=== PATIENT | female | born 1995 | race Two or more races ===

== ENCOUNTER 2018-08-25 16:37 | Emergency (ER) | payer SELFPAY ==
[~2018-08-25] VITALS: Ht 157.5 cm; Wt 45.3 kg
[~2018-08-25 16:37] MED LIST: BIRTHCONTROL
[2018-08-25 16:41] VITALS: BP 126/76
== END 2018-08-25 17:49 | disposition home or self-care (01) ==
LOC: ED 17:43
DX: M25.511 Pain in right shoulder (principal); M54.6 Pain in thoracic spine; Y04.8XXA Assault by other bodily force, initial encounter
CPT/HCPCS: 99283

== ENCOUNTER 2018-10-07 15:10 | Emergency (ER) | payer SELFPAY ==
[~2018-10-07] VITALS: Ht 157.5 cm; Wt 45.9 kg
[2018-10-07 16:30] LABS: HCG UR SG 1.025 (1.003-1.030); MICROSCOPIC INDICATED
[2018-10-07 16:31] LABS: CULTURE INDICATED? YES
[2018-10-07 17:57] VITALS: BP 117/69
== END 2018-10-07 17:57 | disposition home or self-care (01) ==
LOC: ED 17:15
DX: N30.00 Acute cystitis without hematuria (principal)
CPT/HCPCS: 81001; 81025; 87077; 87086; 87186; 99283

== ENCOUNTER 2019-04-21 16:06 | Emergency (ER) | payer MEDICAID ==
[~2019-04-21] VITALS: Ht 157.5 cm; Wt 48.2 kg
--- NOTE | 2019-04-21 16:40 | NUR ---
PT HERE BECAUSE SHE SAYS SHE IS WORRIED SHE HAS UTI. SHE STATES SHE ALSO HAS LLQ ABDOMINAL PAIN. STATES PAIN IS 4/10 AT THIS TIME. PT HAS PROVIDED URINE SAMPLE. LAB AT BEDSIDE. [place] WAS HERE TO UDATE PT ON POC. PT RESTING ON GURNEY. VSS. NADN. CALL LIGHT IN REACH.
[2019-04-21 16:58] LABS: MICROSCOPIC INDICATED
[2019-04-21 17:00] LABS: BASOPHILS # (AUTO) 0.03 x10^3/uL (0-0.1); BASOPHILS % (AUTO) 1 % (0-1); EOSINOPHILS # (AUTO) 0.07 x10^3/uL (0-0.4); EOSINOPHILS % (AUTO) 1 % (1-7); LYMPHOCYTES # (AUTO) 2.63 x10^3/uL (1-3.4); LYMPHOCYTES % (AUTO) 38 % (22-44); MEAN CORPUSCULAR HEMOGLOBIN 30.9 pg (27.0-34.8); MEAN CORPUSCULAR HGB CONC 33.4 g/dL (32.4-35.8); MEAN CORPUSCULAR VOLUME 92.4 fL (80-100); MEAN PLATELET VOLUME 8.6 fL (7.4-10.4); MONOCYTES # (AUTO) 0.41 x10^3/uL (0.2-0.8); MONOCYTES % (AUTO) 6 % (2-9); NEUTROPHILS # (AUTO) 3.73 x10^3/uL (1.8-6.8); NEUTROPHILS % (AUTO) 54 % (42-75); PLATELET COUNT 307 x10^3/uL (130-400); RED BLOOD COUNT 4.18 x10^6/uL (3.82-5.3); RED CELL DISTRIBUTION WIDTH 13.1 % (9.6-15.2)
[2019-04-21 17:00] LABS: HCG UR SG 1.015 (1.003-1.030)
[2019-04-21 17:03] LABS: ALBUMIN 3.6 g/dL (3.4-5.0); ANION GAP 8 mmol/L (5-15); CALCIUM 9.1 mg/dL (8.5-10.1); CHLORIDE 108 mmol/L (98-107)
[2019-04-21 17:07] LABS: ALANINE AMINOTRANSFERASE 13 U/L (12-78); ALKALINE PHOSPHATASE 56 U/L (45-117); BILIRUBIN,TOTAL 0.8 mg/dL (0.2-1.0); CREATININE 0.77 mg/dL (0.55-1.02); MD NO; TOTAL PROTEIN 7.7 g/dL (6.4-8.2)
[2019-04-21 17:22] LABS: CULTURE INDICATED? NO
--- NOTE | 2019-04-21 17:25 | NUR ---
PT RESTING ON STEPHEN. ALIDAS. KIKI. DENIES NEEDS. CALL LIGHT IN REACH.
[2019-04-21 17:57] VITALS: BP 101/66
--- NOTE | 2019-04-21 18:01 | NUR ---
PT SITTING ON GURNEY. DENIES NEEDS. VSS. NADN. CALL LIGHT IN REACH.
== END 2019-04-21 18:24 | disposition home or self-care (01) ==
LOC: ED 18:18
DX: R10.13 Epigastric pain (principal); R10.12 Left upper quadrant pain; R30.0 Dysuria
CPT/HCPCS: 36415; 80053; 81001; 81025; 83690; 85025; 99283

== ENCOUNTER 2019-09-06 19:38 | Emergency (ER) ==
[~2019-09-06] VITALS: Ht 157.5 cm; Wt 47.9 kg
[2019-09-06 19:40] VITALS: BP 106/68
--- NOTE | 2019-09-06 19:47 | NUR ---
PT HERE WITH C/O LEFT BIG TOE LOSS OF SENSATION. PT DENIES TRAUMA/INJURY, PT ABLE TO MOVE TOE. DENIES SENSATION CHANGES. PA AT BEDSIDE.
--- NOTE | 2019-09-06 19:57 | NUR ---
Patient/Caregiver given discharge instructions and they have confirmed that they understand the instructions. Patient ambulatory with steady gait.
== END 2019-09-06 19:59 | disposition home or self-care (01) ==
LOC: ED 19:53
DX: F12.10 Cannabis abuse, uncomplicated (principal); Z72.9 Problem related to lifestyle, unspecified; Z00.00 Encounter for general adult medical examination without abnormal findings
CPT/HCPCS: 99281